=== PATIENT | female | born 1985 | race Caucasian/White ===

== ENCOUNTER 2017-02-13 16:56 | Emergency (ER) | payer MEDICAID ==
--- NOTE | 2017-02-13 18:04 | ER Document Report ---
ED Medical Screen (RME) - General Chief Complaint: Abscess Stated Complaint: ABSCESS/ANAL AREA Time Seen by Provider: 02/13/17 18:01 Mode of Arrival: Ambulatory Information source: Patient Notes: PT PRESENTS WITH ANAL ABSCESS FOR 10 DAYS, INCREASED SWELLING WITH DRAINAGE. DENIES HX OF MRSA. TOOK IBPROFEN FOR PAIN. TRAVEL OUTSIDE OF THE [place] IN LAST 30 DAYS: No - Related Data Allergies/Adverse Reactions: No Known Allergies Allergy (Unverified 02/13/17 17:01) Past Medical History Renal/ Medical History: Denies: Hx Peritoneal Dialysis Physical Exam - Vital signs Vitals: Temp Pulse Resp BP Pulse Ox 99.2 F 78 16 118/58 L 99 02/13/17 17:01 02/13/17 17:01 02/13/17 17:01 02/13/17 17:01 02/13/17 17:01 Course - Vital Signs Vital signs: Temp Pulse Resp BP Pulse Ox 99.2 F 78 16 118/58 L 99 02/13/17 17:01 02/13/17 17:01 02/13/17 17:01 02/13/17 17:01 02/13/17 17:01
[2017-02-13] MEDS ORDERED: ONDANSETRON 4 MG TAB.RAPDIS PO ONE (20:19)
[2017-02-13] MEDS ORDERED: MORPHINE SULFATE 10 MG/ML INJ IM ONE (20:19)
--- NOTE | 2017-02-13 20:21 | ER Document Report ---
ED Skin Rash/Insect Bite/Abscs - General Mode of Arrival: Ambulatory Information source: Patient TRAVEL OUTSIDE OF THE [place] IN LAST 30 DAYS: No - HPI Patient complains to provider of: Skin rash/lesion Onset: Other - 10 days ago Similar symptoms previously: Yes - but on the face <GAB ORONA - Last Filed: 02/13/17 20:15> <LISA SMITH - Last Filed: 02/13/17 22:19> - General Chief Complaint: Abscess Stated Complaint: ABSCESS/ANAL AREA Time Seen by Provider: 02/13/17 18:01 Notes: 32 year old female presents to the ED complaining of a ivis-anal abscess that started 10 days ago. Patient reports that the pain started 10 days ago, but noticed the abscess 4-5 days ago. Patient reports that the abscess started mildly draining today. Patient has taken ibuprofen for pain. Patient's friend states that the skin color has changed since yesterday. (GAB ORONA) - Related Data Allergies/Adverse Reactions: No Known Allergies Allergy (Unverified 02/13/17 17:01) Past Medical History - General Information source: Patient - Social History Smoking Status: Unknown if Ever Smoked Family History: Reviewed & Not Pertinent Patient has suicidal ideation: No Patient has homicidal ideation: No Renal/ Medical History: Denies: Hx Peritoneal Dialysis <GAB ORONA - Last Filed: 02/13/17 20:15> Review of Systems - Review of Systems Constitutional: No symptoms reported EENT: No symptoms reported Cardiovascular: No symptoms reported Respiratory: No symptoms reported Gastrointestinal: No symptoms reported Genitourinary: No symptoms reported Female Genitourinary: No symptoms reported Musculoskeletal: No symptoms reported Skin: See HPI, Other - abscess to the ivis-anal region Hematologic/Lymphatic: No symptoms reported Neurological/Psychological: No symptoms reported <GAB ORONA - Last Filed: 02/13/17 20:15> Physical Exam - General General appearance: Alert In distress: None - HEENT Head: Normocephalic, Atraumatic Eyes: Normal Extraocular movements intact: Yes Pupils: PERRL - Respiratory Respiratory status: No respiratory distress Breath sounds: Normal - Cardiovascular Rhythm: Regular Heart sounds: Normal auscultation - Abdominal Inspection: Normal Distension: No distension Tenderness: Nontender - Back Back: Normal - Extremities General upper extremity: Normal inspection, Normal ROM General lower extremity: Normal inspection, Normal ROM - Neurological Neuro grossly intact: Yes - Psychological Associated symptoms: Normal affect, Normal mood - Skin Skin Temperature: Warm Skin Moisture: Dry Skin irregularity: Abscess - Upper left of the anus in the buttock crease is a red, indurated, and longitudinal area that looks like it has been drained and is tender to palpate. <GAB ORONA - Last Filed: 02/13/17 20:15> Procedures - Incision and Drainage Buttock Time completed: 22:05 Type: Simple Anesthetic type: 1% Lidocaine mL's of anesthetic: 3 Blade size: 11 I&D procedure: Shurclens applied, Iodoform packing placed Incision Method: Incision made by scalpel <LISA SMITH - Last Filed: 02/13/17 22:19> - Incision and Drainage Buttock Notes: 02/13/17 22:18 Minimal drainage encountered. There is an abscess cavity that had previously drained. (LISA SMITH) Discharge <GAB ORONA - Last Filed: 02/13/17 20:15> <LISA SMITH - Last Filed: 02/13/17 22:19> - Discharge Clinical Impression: Left buttock abscess Condition: Stable Disposition: HOME, SELF-CARE Additional Instructions: Abscess: You have an abscess (boil). This a pus-forming infection, usually due to staph. Some boils may be left to drain on their own, but most require lancing. From the time the tender lump first appears, it may be three or four days before the abscess is ready to caleb. Local heat and rest help at this stage of treatment. An antibiotic may prevent spread of the infection. Once the abscess is opened, packing may be placed into it. This is done so pus is not sealed inside by premature closure of the cavity. The packing will be removed at your follow-up visit or you may be advised to remove it yourself at home. Sometimes this packing must be replaced a few times during healing. The wound will heal with surprisingly little scar. Depending on the size and location of an abscess, healing can take one to four weeks. You may shower and wash the area around the incision site two or three times a day. Antibiotics may be prescribed, but are usually not necessary after an abscess has been drained. If you develop fever, chilling, worsening pain, or increasing swelling in the area, call the doctor or return immediately. TAKE THE MEDICATION PRESCRIBED. SOAK IN A WARM TUB A FEW TIMES DAILY. REMOVE THE PACKING ON SUNDAY. FOLLOW UP WITH A LOCAL MEDICAL DOCTOR IF NOT IMPROVING. RETURN TO THE EMERGENCY ROOM IF ANY NEW OR WORSENING SYMPTOMS. Prescriptions: Cephalexin Monohydrate [Keflex 500 mg Capsule] 500 mg PO QID #20 capsule Hydrocodone/Acetaminophen [Vinton 5-325 mg Tablet] 1 tab PO Q4 PRN #15 tablet PRN Reason: Scribe Attestation: 02/13/17 22:16 (LISA SMITH) Scribe Documentation - Scribe Written by Ondina:: Ondina Davis, 02/13/20172020 acting as scribe for :: Yaquelin <GAB ORONA - Last Filed: 02/13/17 20:15>
[2017-02-13] MEDS ORDERED: LIDOCAINE 1% INJ-PF (10 MG/ML) 30 ML SDV INJ ONE (20:22)
[2017-02-13] MEDS ORDERED: CEPHALEXIN 500 MG CAPSULE PO ONE (22:12)
[2017-02-13] MEDS ORDERED: HYDROCODONE/ACETAMINOPHEN 5-325 MG 6 TAB/DSPK PO PRN (22:12)
[2017-02-13 22:27] VITALS: BP 117/69
== END 2017-02-13 22:57 | disposition home or self-care (01) ==
LOC: ER 16:56
PROC: 0H98XZZ Drainage of Buttock Skin, External Approach (ICD-10-PCS; principal; 2017-02-13)
DX: L02.31 Cutaneous abscess of buttock (principal)
CPT/HCPCS: 99283; 96372; 87070; 87075; 87077; 10060; S0119; J2270; 87205

== ENCOUNTER 2017-12-10 01:00 | Observation (INO) | payer SELFPAY ==
[2017-12-10] MEDS ORDERED: CEFTRIAXONE 1 GM/D5W RTU 1 GM/50 ML RTUPB IV ONE (01:29)
[2017-12-10] MEDS ORDERED: VANCOMYCIN HCL INJ 1000 MG VIAL IV ONE (01:29)
[2017-12-10] MEDS ORDERED: NORMAL SALINE 1000 ML 1,000 ML IV ONE (01:30)
[2017-12-10 01:49] LABS: ABSOLUTE BASOPHILS # (AUTO) 0.1 10^3/uL (0.0-0.2); ABSOLUTE EOSINOPHILS # (AUTO) 0.3 10^3/uL (0.0-0.6); ABSOLUTE LYMPHOCYTES (AUTO) 3.2 10^3/uL (0.5-4.7); ABSOLUTE MONOCYTES (AUTO) 0.9 10^3/uL (0.1-1.4); ABSOLUTE NEUT (AUTO) 6.7 10^3/uL (1.7-8.2); BASOPHILS % (AUTO) 0.5 % (0-2); EOSINOPHILS % (AUTO) 2.5 % (0-6); HEMATOCRIT 39.4 % (36.0-47.0); HEMOGLOBIN 13.2 g/dL (12.0-15.5); LYMPHOCYTES % (AUTO) 28.8 % (13-45); MEAN CORPUSCULAR HEMOGLOBIN 32.7 pg (27.0-33.4); MEAN CORPUSCULAR HGB CONC 33.6 g/dL (32.0-36.0); MEAN CORPUSCULAR VOLUME 97 fl (80-97); MONOCYTES % (AUTO) 8.3 % (3-13); PLATELET COUNT 251 10^3/uL (150-450); RED BLOOD COUNT 4.05 10^6/uL (3.72-5.28); RED CELL DISTRIBUTION WIDTH 13.5 % (11.5-14.0); SEGMENTED NEUTROPHILS % (AUTO) 59.9 % (42-78); TOTAL CELLS COUNTED % (AUTO) 100 %; WHITE BLOOD COUNT 11.2 10^3/uL (4.0-10.5)
[2017-12-10 01:55] LABS: ANION GAP 12 (5-19); BLOOD UREA NITROGEN 14 mg/dL (7-20); CALCIUM 9.7 mg/dL (8.4-10.2); CARBON DIOXIDE 27 mmol/L (22-30); CHLORIDE 106 mmol/L (98-107); GLUCOSE 73 mg/dL (75-110); POTASSIUM 4.1 mmol/L (3.6-5.0); SODIUM 144.7 mmol/L (137-145)
[2017-12-10] MEDS ORDERED: CEFTRIAXONE INJ 1000 MG VIAL ONE (01:56)
--- NOTE | 2017-12-10 02:01 | ER Document Report ---
ED General - General Chief Complaint: Abscess Stated Complaint: POSSIBLE ABSCESS RECTAL AREA Time Seen by Provider: 12/10/17 01:14 Notes: Patient is a 32-year-old female one prior anal abscess but no other chronic medical problems who presents with 1 week of a progressively worsening anal abscess. Patient states that she has an area on her anus that is extremely painful, swollen and indurated. She describes it as a constant, stabbing, severe pain worsened by touching the area or sitting down. Nothing improves the pain. She states this is more severe than the prior dental abscess that she had back in February 2017. She has not seen a primary care doctor regarding today's concerns. She denies any associated fever or constitutional symptoms. She denies any known history of inflammatory bowel conditions. TRAVEL OUTSIDE OF THE [place] IN LAST 30 DAYS: No - Related Data Allergies/Adverse Reactions: No Known Allergies Allergy (Verified 12/10/17 01:02) Past Medical History - General Information source: Patient - Social History Smoking Status: Never Smoker Frequency of alcohol use: None Drug Abuse: None Lives with: Spouse/Significant other Family History: Reviewed & Not Pertinent Renal/ Medical History: Denies: Hx Peritoneal Dialysis - Immunizations Hx Diphtheria, Pertussis, Tetanus Vaccination: Yes Review of Systems - Review of Systems Notes: Constitutional: Negative for fever. HENT: Negative for sore throat. Eyes: Negative for visual changes. Cardiovascular: Negative for chest pain. Respiratory: Negative for shortness of breath. Gastrointestinal: Negative for abdominal pain, vomiting or diarrhea. Genitourinary: Negative for dysuria. Musculoskeletal: Negative for back pain. Skin: Positive for an anal abscess Neurological: Negative for headaches, weakness or numbness. 10 point ROS negative except as marked above and in HPI. Physical Exam - Vital signs Vitals: Temp Pulse Resp BP Pulse Ox 97.8 F 86 20 115/66 99 12/10/17 01:08 12/10/17 01:08 12/10/17 01:08 12/10/17 01:08 12/10/17 01:08 Interpretation: Normal Notes: PHYSICAL EXAMINATION: GENERAL: Appears uncomfortable but in no acute distress HEAD: Atraumatic, normocephalic. EYES: Pupils equal round and reactive to light, extraocular movements intact, sclera anicteric, conjunctiva are normal. ENT: nares patent, oropharynx clear without exudates. Moist mucous membranes. NECK: Normal range of motion, supple without lymphadenopathy LUNGS: Breath sounds clear to auscultation bilaterally and equal. No wheezes rales or rhonchi. HEART: Regular rate and rhythm without murmurs ABDOMEN: Soft, nontender, normoactive bowel sounds. No guarding, no rebound. No masses appreciated. Rectal: There is a 0.5 x 1 cm abscess in the 3 to 4 o'clock position on the anus with mild surrounding erythema to the surrounding buttock EXTREMITIES: Normal range of motion, no pitting or edema. No cyanosis. NEUROLOGICAL: No focal neurological deficits. Moves all extremities spontaneously and on command. PSYCH: Normal mood, normal affect. SKIN: Warm, Dry, normal turgor, no rashes or lesions noted. Course - Re-evaluation Re-evalutation: 12/10/17 01:59 Patient presents with an anal abscess at the 3 o'clock position. There is mild surrounding erythema to the affected area. This is the second time she has had an anal abscess in less than 1 year worrisome for possible inflammatory bowel condition with a fistulous tract. However patient does not report any additional symptoms suggest a diagnosis of Crohn's disease. She is otherwise nontoxic in appearance, no acute distress, no focal abdominal tenderness on examination. Given the location of the abscess, this is outside of my scope of practice. I did contact Dr. Fernandez and he has recommended beginning IV antibiotics, keeping the patient n.p.o. and he will take her to the operating room in the morning. - Vital Signs Vital signs: Temp Pulse Resp BP Pulse Ox 97.8 F 86 20 115/66 99 12/10/17 01:08 12/10/17 01:08 12/10/17 01:08 12/10/17 01:08 12/10/17 01:08 - Laboratory Result Diagrams: 12/10/17 01:25 12/10/17 01:25 Laboratory results interpreted by me: 12/10/17 12/10/17 01:25 01:25 WBC 11.2 H Glucose 73 L Discharge - Discharge Clinical Impression: Anal abscess Condition: Fair Disposition: ADMITTED OBSERVATION Admitting Provider: Surgicalist - Rebecca Unit Admitted: Surgical Floor
--- NOTE | 2017-12-10 03:33 | PDOC H&P ---
History of Present Illness Admission Date/PCP: 12/10/17 02:19 Patient complains of: Pains right ivis=anal area History of Present Illness: JESSICA PAGE is a 32 year old female c/o ivis=anal pains past 3 days. May have started as a "plmple" a month ago. Past Medical History Psychiatric Medical History: Reports: General Anxiety Disorder, Tobacco Dependency Past Surgical History Past Surgical History: Reports: Other - Had I&D of left ivis=anal abscess in the ED a year ago. Claims this area st Social History Smoking Status: Unknown if Ever Smoked Frequency of Alcohol Use: Rare Hx Recreational Drug Use: No Family History Family History: Reviewed & Not Pertinent Parental Family History Reviewed: Yes - Gdmother and aunt have DM Children Family History Reviewed: No Sibling(s) Family History Reviewed.: No Medication/Allergy Home Medications: Pnv W-O Ca No5/Fe Fumarate/FA [-U Capsule] 1 cap PO DAILY 10/29/12 Calcium Carbonate [Tums] 200 mg PO 11/16/12 Ibuprofen [Motrin 800 Mg Tablet] 800 mg PO Q8HP PRN 11/18/12 Cephalexin Monohydrate [Keflex 500 mg Capsule] 500 mg PO QID #20 capsule Hydrocodone/Acetaminophen [[place] 5-325 mg Tablet] 1 tab PO Q4 PRN #15 tablet 06/24 Allergies/Adverse Reactions: No Known Allergies Allergy (Verified 12/10/17 01:02) Review of Systems Constitutional: PRESENT: other - no fever/chills Eyes: PRESENT: other - no visual/hearing changes Cardiovascular: PRESENT: other - no chest pains Respiratory: PRESENT: other - no dyspnea Genitourinary: PRESENT: other - no dysuria Integumentary: PRESENT: other - painful swelling right ivis-anal area Neurological: PRESENT: other - no seizures Psychiatric: PRESENT: anxiety Endocrine: PRESENT: other - no polyuria Hematologic/Lymphatic: PRESENT: other - no esy bruising Physical Exam Vital Signs: Temp Pulse Resp BP Pulse Ox 97.8 F 86 20 115/66 99 12/10/17 01:08 12/10/17 01:08 12/10/17 01:08 12/10/17 01:08 12/10/17 01:08 General appearance: PRESENT: mild distress Head exam: PRESENT: atraumatic, normocephalic Eye exam: PRESENT: conjunctiva pink Mouth exam: PRESENT: moist Neck exam: PRESENT: full ROM Respiratory exam: PRESENT: clear to auscultation megha Cardiovascular exam: PRESENT: RRR Pulses: PRESENT: normal radial pulses Vascular exam: PRESENT: normal capillary refill GI/Abdominal exam: PRESENT: soft Rectal exam: PRESENT: other - prominent reddish swelling,tender right ivis-anal area Extremities exam: PRESENT: full ROM Musculoskeletal exam: PRESENT: ambulatory Neurological exam: PRESENT: alert, oriented to person, oriented to place, oriented to time, oriented to situation Psychiatric exam: PRESENT: appropriate affect Skin exam: PRESENT: normal color, warm Assessment & Plan - Diagnosis (1) Anal abscess Is this a current diagnosis for this admission?: Yes - Time Time Spent: 30 to 50 Minutes - Plan Summary Plan Summary: IV antibiotics For I&D right ivis-anal area
[2017-12-10] MEDS ORDERED: SUCCINYLCHOLINE CHLORIDE INJ 200 MG/10 ML VIAL ONE (08:21)
[2017-12-10] MEDS ORDERED: KETOROLAC TROMETHAMINE 60 MG/2 ML SDV ONE (08:21)
[2017-12-10] MEDS ORDERED: DEXAMETHASONE SOD PHOSPHATE INJ 4 MG/1 ML VIAL ONE (13:47)
[2017-12-10] MEDS ORDERED: FENTANYL CITRATE INJ/PF 100 MCG/2 ML AMPUL ONE (13:47)
[2017-12-10] MEDS ORDERED: LIDOCAINE 2% INJ-PF (20 MG/ML) 10 ML AMPUL ONE (13:47)
[2017-12-10] MEDS ORDERED: MIDAZOLAM 2 MG/2 ML INJ ONE (13:47)
[2017-12-10] MEDS ORDERED: ACETAMINOPHEN 0 ML IV ONE (13:48)
[2017-12-10] MEDS ORDERED: ONDANSETRON HCL INJ/PF 4 MG/2 ML SDV ONE (13:48)
[2017-12-10] MEDS ORDERED: PROPOFOL INJ 200 MG/20 ML VIAL IV ONE (13:48)
[2017-12-10] MEDS ORDERED: BUPIVACAINE HCL 0.25 % INJ/PF (2.5 MG/1 ML) 30 ML VIAL ONE (14:25)
[2017-12-10] MEDS ORDERED: MORPHINE SULFATE 10 MG/ML INJ IV PRN (14:37)
[2017-12-10] MEDS ORDERED: FENTANYL CITRATE INJ/PF 100 MCG/2 ML AMPUL IV PRN ×3 (14:37)
[2017-12-10] MEDS ORDERED: OXYCODONE-ACETAMINOPHEN 5-325 MG TABLET PO PRN ×3 (14:37→17:05)
[2017-12-10] MEDS ORDERED: MEPERIDINE HCL/PF INJ 25 MG/1 ML DISP.SYRIN IV PRN (14:37)
[2017-12-10] MEDS ORDERED: ONDANSETRON HCL INJ/PF 4 MG/2 ML SDV IV PRN (14:37)
[2017-12-10] MEDS ORDERED: PROMETHAZINE HCL INJ 25 MG/1 ML VIAL IV PRN ×2 (14:37)
[2017-12-10] MEDS ORDERED: DIPHENHYDRAMINE HCL 50 MG/ML VIAL IV PRN (14:37)
--- NOTE | 2017-12-10 14:44 | Operative Report ---
Operative Report DATE OF SURGERY: 12/10/17 PREOPERATIVE DIAGNOSIS: Right posterior lateral perianal abscess POSTOPERATIVE DIAGNOSIS: Same; no fistula confirmed OPERATION: 1. Examination under anesthesia. 2. Irrigation debridement and packing of right posterior lateral perianal abscess SURGEON: ZANDRA ARANDA ANESTHESIA: GA TISSUE REMOVED OR ALTERED: Pus sent for culture COMPLICATIONS: None ESTIMATED BLOOD LOSS: Scant INTRAOPERATIVE FINDINGS: See below PROCEDURE: She was taken to the operating room where general anesthesia was induced. She was then flipped in the prone jackknife position buttocks spread taped widely with benzoin the area was prepped and draped in sterile fashion Surgical plan surgical timeout were conducted. Perianal digital examination consisted of acute abscess in the patient's posterior lateral position just beyond the anal verge. There was scarring in the patient's left posterior lateral position consistent with previous drainage procedure. There are multiple external hemorrhoids, collapsed, nonthrombosed. The perianal tissue was anesthetized with quarter percent Marcaine and a 25- gauge needle. The anal canal was dilated up to admit to adult fingers. The bullet anoscope was inserted into position. There was no visible or palpable anorectal pathology. I did evacuate the anal rectal canal of several moderate sized stool balls. I did not see an internal opening associated with the right posterior lateral perianal abscess. Posterior lateral skin was now incised with a 15 blade, pus emanated and sent for culture and sensitivity. An ellipse of skin was removed leaving the tissue open. The wound was curetted. There was some tracking towards midline where there was significant scar possibly from previous trauma or possibly from the previous posterior lateral abscess healing nonetheless it was difficult to ascertain exactly where and what condition the external sphincter was then. With the bullet anoscope in position and the abscess drained, I probed the abscess cavity, but could not identify a fistula tract. I then injected full- strength peroxide into the abscess cavity with the syringe, and there was no bubbling in the anal canal. Therefore further attempts at identifying the fistula were aborted At this point we felt the operation was complete. Sponge and needle counts are correct bleeding was negligible. The wound cavity was packed with approximately 2 feet of iodoform packing quarter-inch. Patient tolerated the procedure well, extubated, taken to recovery room stable condition.
[2017-12-10] MEDS: DOCUSATE SODIUM 100 MG CAPSULE PO SCH (19:08)
[2017-12-11] MEDS: DOCUSATE SODIUM 100 MG CAPSULE PO SCH ×2 (10:52→18:04)
[2017-12-11 17:11] VITALS: BP 102/59
== END 2017-12-11 19:23 | disposition home or self-care (01) ==
LOC: ER 01:00 → EH 02:19 → 2S 09:33
PROVIDERS: ATTEND Surgery
PROC: 0D9QXZX Drainage of Anus, External Approach, Diagnostic (ICD-10-PCS; principal; 2017-12-10 12:45)
DX: K61.0 Anal abscess (principal); K64.4 Residual hemorrhoidal skin tags; F41.9 Anxiety disorder, unspecified; Z98.890 Other specified postprocedural states
CPT/HCPCS: 99284; 96361; 96365; 96367; 36415; 87070; 87205; 85025; 87075; 87077; 80048; 87186; 46050; G0378 ×2; A6266 ×2; J2250; J1100; J1885; J3010; J0330; J0696; J2405; J7030; J2704; J3370; J3490; 902; J0131

== ENCOUNTER 2018-04-15 15:22 | Emergency (ER) | payer MEDICAID ==
[2018-04-15 15:34] VITALS: BP 116/67
--- NOTE | 2018-04-15 15:48 | ER Document Report ---
HPI - HPI Patient complains to provider of: Numbness to the thumb and index finger Onset: Other Pain Level: 4 Context: 33 yo female c/o numbness to left thumb and index finger for 3 weeks. hurts at the elbow and some periscapular pain. Some neck pain, under excessive stress. Associated Symptoms: None Exacerbated by: Movement Relieved by: Denies Similar symptoms previously: No Recently seen / treated by doctor: No - ROS ROS below otherwise negative: Yes Systems Reviewed and Negative: Yes All other systems reviewed and negative - REPRODUCTIVE Reproductive: DENIES: : Past Medical History - General Information source: Patient - Social History Smoking Status: Current Every Day Smoker Frequency of alcohol use: None Drug Abuse: None Lives with: Family Family History: Reviewed & Not Pertinent Renal/ Medical History: Denies: Hx Peritoneal Dialysis Psychiatric Medical History: Reports: Hx Depression - [facility] Dr. Gibbs Surgical Hx: Negative Past Surgical History: Reports: Other - Had I&D of left ivis=anal abscess in the ED a year ago. Claims this area st - Immunizations Hx Diphtheria, Pertussis, Tetanus Vaccination: Yes Vertical Provider Document - CONSTITUTIONAL Agree With Documented VS: Yes Exam Limitations: No Limitations - INFECTION CONTROL TRAVEL OUTSIDE OF THE [place] IN LAST 30 DAYS: No - NECK Neck: Supple - RESPIRATORY Respiratory: Breath Sounds Normal, No Respiratory Distress - CARDIOVASCULAR Cardiovascular: Regular Rate, Regular Rhythm - MUSCULOSKELETAL/EXTREMETIES Musculoskeletal/Extremeties: MAEW, FROM, Tender - Over the radial forearm muscle and the radial head, No Edema - NEURO Level of Consciousness: Awake, Alert Motor/Sensory: No Motor Deficit - 5+ strength Notes: Dulled sensation to the thumb and index finger of the left hand. - DERM Integumentary: No Rash Course - Vital Signs Vital signs: Temp Pulse Resp BP Pulse Ox 98.8 F 64 16 116/67 99 04/15/18 15:32 04/15/18 15:32 04/15/18 15:32 04/15/18 15:32 04/15/18 15:32 Discharge - Discharge Clinical Impression: Median nerve paresthesia Condition: Good Disposition: HOME, SELF-CARE Instructions: Ibuprofen (General) ([facility]), Muscle Relaxers ([facility]), Temporary Splint ([facility]), Ultram ([facility]) Additional Instructions: splint see the neurologist for nerve conduction test motrin Tylenol Flexeril Ultram Prescriptions: Cyclobenzaprine HCl [Flexeril 10 Mg Tablet] 10 mg PO TIDP PRN #20 tablet PRN Reason: Tramadol HCl [Ultram 50 mg Tablet] 50 mg PO ASDIR PRN #20 tablet PRN Reason: Forms: Return to Work Referrals: ROBIN DE LUNA MD [NO LOCAL MD] - Follow up as needed
== END 2018-04-15 16:11 | disposition home or self-care (01) ==
LOC: ER 15:22
DX: R20.2 Paresthesia of skin (principal); M54.2 Cervicalgia; F17.200 Nicotine dependence, unspecified, uncomplicated
CPT/HCPCS: 99283; L3908

== ENCOUNTER 2018-05-01 12:42 | Emergency (ER) | payer SELFPAY ==
[2018-05-01] MEDS ORDERED: HYDROCODONE/ACETAMINOPHEN 5-325 MG TABLET PO ONE (14:05)
[2018-05-01] MEDS ORDERED: LIDOCAINE 1%/EPINEPHRINE INJ 20 ML VIAL INJ ONE (14:05)
--- NOTE | 2018-05-01 14:08 | ER Document Report ---
ED Skin Rash/Insect Bite/Abscs - General Chief Complaint: Abscess Stated Complaint: VAGINAL PAIN Time Seen by Provider: 05/01/18 14:05 Notes: The patient is a 33-year-old female who presents with 3 days of enlarging lump on her left labia. She has had this 3 times in the past required drainage. She does not shave. Denies vaginal discharge, dysuria and she is not . TRAVEL OUTSIDE OF THE [place] IN LAST 30 DAYS: No - Related Data Allergies/Adverse Reactions: No Known Allergies Allergy (Verified 05/01/18 12:43) Past Medical History - General Information source: Patient - Social History Smoking Status: Current Every Day Smoker Chew tobacco use (# tins/day): No Frequency of alcohol use: Occasional Drug Abuse: Marijuana Family History: Reviewed & Not Pertinent Patient has suicidal ideation: No Patient has homicidal ideation: No Renal/ Medical History: Denies: Hx Peritoneal Dialysis Psychiatric Medical History: Reports: Hx Depression - [facility] Dr. Gibbs Past Surgical History: Reports: Other - Had I&D of left ivis=anal abscess in the ED a year ago. Claims this area st - Immunizations Hx Diphtheria, Pertussis, Tetanus Vaccination: Yes Review of Systems - Review of Systems Notes: REVIEW OF SYSTEMS: CONSTITUTIONAL: -fevers, -chills EENT: -eye pain, -difficulty swallowing, -nasal congestion CARDIOVASCULAR: -chest pain, -syncope. RESPIRATORY: -cough, -SOB GASTROINTESTINAL: -abdominal pain, -nausea, -vomiting, -diarrhea GENITOURINARY: +labial abscess, -dysuria, -hematuria MUSCULOSKELETAL: -back pain, -neck pain SKIN: -rash or skin lesions. HEMATOLOGIC: -easy bruising or bleeding. LYMPHATIC: -swollen, enlarged glands. NEUROLOGICAL: -altered mental status or loss of consciousness, -headache, - neurologic symptoms PSYCHIATRIC: -anxiety, -depression. ALL OTHER SYSTEMS REVIEWED AND NEGATIVE. Physical Exam - Vital signs Vitals: Temp Pulse Resp BP Pulse Ox 98.8 F 83 14 114/67 99 05/01/18 12:47 05/01/18 12:47 05/01/18 12:47 05/01/18 12:47 05/01/18 12:47 - Notes Notes: PHYSICAL EXAMINATION: GENERAL: Well-appearing, well-nourished and in no acute distress. HEAD: Atraumatic, normocephalic. EYES: Pupils equal round and reactive to light, extraocular movements intact, sclera anicteric, conjunctiva are normal. ENT: nares patent, oropharynx clear without exudates. Moist mucous membranes. NECK: Normal range of motion, supple without lymphadenopathy ABDOMEN: Soft, nontender, normoactive bowel sounds. No guarding, no rebound. No masses appreciated. (Chaperoned by SURESH Linares) 2 cm left labial abscess with fluctuance EXTREMITIES: Normal range of motion, no pitting or edema. No cyanosis. NEUROLOGICAL: Cranial nerves grossly intact. Normal speech, normal gait. Normal sensory and motor exams. PSYCH: Normal mood, normal affect. Course - Re-evaluation Re-evalutation: Patient's left labial abscess was incised and drained with a small amount of purulent drainage. Will place her on antibiotics, warm baths and have her follow-up with gynecology. - Vital Signs Vital signs: Temp Pulse Resp BP Pulse Ox 98 F 72 16 114/62 100 05/01/18 14:48 05/01/18 14:48 05/01/18 14:48 05/01/18 14:48 05/01/18 14:48 Procedures - Incision and Drainage Left Labia Time completed: 14:38 Type: Simple Anesthetic type: 1% Lidocaine mL's of anesthetic: 3 Blade size: 11 I&D procedure: Betadine prep applied Incision Method: Incision made by scalpel Amount/type of drainage: 2 mL purulent drainage Discharge - Discharge Clinical Impression: Abscess of left genital labia Condition: Stable Disposition: HOME, SELF-CARE Additional Instructions: ABSCESS: You have an abscess (boil). This a pus-forming infection, usually due to staph. Some boils may be left to drain on their own, but most require lancing. From the time the tender lump first appears, it may be three or four days before the abscess is ready to caleb. Local heat and rest help at this stage of treatment. An antibiotic may prevent spread of the infection. Once the abscess is opened, packing may be placed into it. This is done so pus is not sealed inside by premature closure of the cavity. The packing will be removed at your follow-up visit or you may be advised to remove it yourself at home. Sometimes this packing must be replaced a few times during healing. The wound will heal with surprisingly little scar. Depending on the size and location of an abscess, healing can take one to four weeks. You may shower and wash the area around the incision site two or three times a day. Antibiotics may be prescribed, but are usually not necessary after an abscess has been drained. If you develop fever, chills, worsening pain, or increasing swelling in the area, call the doctor or return immediately. POST INCISION AND DRAINAGE: You have had an incision made to allow drainage of an abscess. The incision must remain open so that pus and debris can drain from the wound. If the abscess cavity is large, packing is placed. This keeps the tissues from collapsing and trapping pus inside, while the body shrinks the cavity. The packing may need to be replaced every day or two. The physician will instruct you on the packing. Keep a bulky dressing over the area. Replace it if it becomes saturated with blood or pus. Do not disturb the packing (if present). You may shower and cleanse the area with gentle soap and warm water two or three times a day. Local warmth may be soothing, and may promote faster healing. Return if you develop high fever or chills, or if you note spreading redness, increasing swelling, or increasing tenderness. TRIMETHOPRIM-SULFA: You have been given a prescription for trimethoprim-sulfa (TMS, Septra, Bactrim). This is a combination antibiotic of the sulfa class, often used for urinary tract infections, middle ear infections, bronchitis, shigella intestinal infection, and Pneumocystis pneumonia. TMS is usually well-tolerated. Occasional side effects include nausea and decreased appetite. Septra is not recommended for infants less than two months of age. Do not take this medication if you have experienced severe side effects or allergy to sulfa medicine. You should stop this medicine at once and contact your physician if you develop any rash, joint pain, shortness of breath, bruising, or jaundice ( yellow color in the skin), or if you develop any other new or unusual symptoms. FOLLOW-UP CARE: Most simple abscesses will not require a follow up visit. If you had packing placed in the abscess, remove it as instructed by the physician. If you have been referred to a physician for follow-up care, call the physicians office for an appointment as you were instructed or within the next two days. If you experience worsening or a significant change in your symptoms, return to the Emergency Department at any time for re-evaluation. Prescriptions: Sulfamethoxazole/Trimethoprim [Bactrim Ds Tablet] 1 each PO Q12 10 Days tablet Referrals: FREYA BRIAN MD [ACTIVE STAFF] - Follow up as needed
[2018-05-01 14:52] VITALS: BP 114/62
== END 2018-05-01 14:52 | disposition home or self-care (01) ==
LOC: ER 12:42
DX: N76.4 Abscess of vulva (principal); F17.200 Nicotine dependence, unspecified, uncomplicated
CPT/HCPCS: 99283; J3490